=== PATIENT | male | born 1980 | race African-American/Black ===

== ENCOUNTER 2017-07-05 04:46 | Observation (INO) ==
[2017-07-05] MEDS: D5% in 0.9% NACL 1,000 ML IVC SCH ×2 (08:59→16:57)
[2017-07-05] MEDS: *HR* Morphine 2 MG/ML SYRINGE IVP PRN ×4 (08:59→20:13)
[2017-07-05] MEDS: Piperacillin/Tazobactam 3.375 GM/200 ML BAG IVPB SCH ×2 (11:31→17:18)
--- NOTE | 2017-07-05 11:42 | General Surg History&Physical ---
Addendum entered and electronically signed by Falguni Fontana CNP 07/05/17 12:33: Endoscopy report reviewed from [facility]- findings are consistent with gastritis and duodenitis, no esophageal abnormality noted. Black tarry stools were felt to be a results of the patient taking Kaopectate that he had been taking on a regular basis. Will continue with PPI therapy BID and will add carafate QID. Original Note: <Falguni Fontana - Last Filed: 07/05/17 11:59> Date of Encounter: 07/05/17 Time of Encounter: 09:30 Assessment and Plan (1) Cholecystitis, acute with cholelithiasis Current Visit: No Status: Acute The assessment and plan as outlined above was discussed with the patient and/or family members who expressed understanding and agreement. All questions were answered. NPO IV antibiotics- Zosyn IV fluids Supportive care and pain control Discussed the risks, benefits, alternatives, expected outcomes with the patient needs to go to proceed with a laparoscopic cholecystectomy, possible open with Dr. Kohli in the next 24-48 hours. PPI BID IS every 1 hour while awake AM labs Qualifiers: Cholelithiasis location: gallbladder Biliary obstruction: without biliary obstruction Qualified Code(s): K80.00 - Calculus of gallbladder with acute cholecystitis without obstruction (2) Esophagitis Current Visit: Yes Status: Acute The assessment and plan as outlined above was discussed with the patient and/or family members who expressed understanding and agreement. All questions were answered. PPI therapy BID (3) Tobacco abuse Current Visit: Yes Status: Chronic The assessment and plan as outlined above was discussed with the patient and/or family members who expressed understanding and agreement. All questions were answered. Smoking cessation education Nicotine patch prn (4) DVT prophylaxis Current Visit: Yes Status: Acute The assessment and plan as outlined above was discussed with the patient and/or family members who expressed understanding and agreement. All questions were answered. Lovenox 40mg SQ daily Ambulate hallways TID with assistance History of Present Illness Chief complaint: Abdominal pain HPI: Mr. Robledo is a 37 year old male with no significant medical history. 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 He states that he did undergo an upper endoscopy and was treated for inflammation of the esophagus and stomach. He states he was discharged and instructed to follow up with a GI physician. He reports that the epigastric abdominal pain and black tarry stools continued and he therefore presented to [facility] and [place]. He states that he was admitted to this hospital for 3-4 days and was scheduled to have a cholecystectomy today. However, the patient states that he was informed yesterday that his surgery would be cancelled and he does not have a good explanation for why the surgery was cancelled. He presented to the emergency department at [facility] last evening with similar complaints. He states that his pain in the epigastric area initially started approximately one year ago. He states that the episodes were intermittent and they did resolve on their own. However , for the last 3 weeks he states that the pain has been persistent and he is unable to gain relief from the pain. He states that eating or drinking make the pain significantly worse. He has experienced nausea and vomiting. He has has no appetite. He denies any fevers or chills. He denies any shortness of breath or chest pain. He states that he continues to have black tarry stools and his last bowel movement was last evening. He states that his symptoms do not feel any better with the use of PPI therapy. He denies any heartburn symptoms. He denies any alcohol use. He denies any chronic use of nonsteroidal inflammatory medication. He does admit to having a history of drug use which includes cocaine. 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 He has had a CAT scan evaluation which shows evidence of acute cholecystitis as well as distal esophageal thickening. The patient has been admitted to the hospital for further workup and treatment. Past Med Surg Social Fam HX - Past Medical History Source: patient, old records reviewed Medical history: asthma (as a child), kidney stones, other (esophagitis/ gastritis; pneumothorax as a child) Psychiatric history: no psych history - Past Surgical History Surgical History: other (EGD complete in the past week at [facility] in [facility]) - Social History Smoking Status: Current every day smoker Smokeless Tobacco Status: No Alcohol use: none Drug use: none (currently), cocaine (patient states that he has not used in 2 months and is currently in recovery) - Family History Mother Living Status: Still Living Father Living Status: Age at : 55 Hx Family Cancer: Yes (prostate) Grandmother Living Status: Age at : 63 Hx Family Cancer: Yes (pancreatic cancer) Medications and Allergies HYDROcodone/Acet 5/325 mg [[place]ubon 5-325 mg] 1 - 2 tab PO Q8H PRN 07/05/17 [ History] Pantoprazole Sodium [Protonix] 40 mg PO QAM 07/05/17 [History] 3 Allergy/AdvReac Type Severity Reaction Status Date / Time No Known Allergies Allergy Verified 07/05/17 02:05 Review of Systems All systems PM: reviewed and no additional remarkable complaints except as stated (in the HPI) All systems PM: A 10-system review of systems was performed and is negative for pertinent findings except as documented above in the HPI. General Surgery Exam Initial Vital Signs Temp Pulse Resp BP Pulse Ox 98.0 F 52 16 123/66 98 07/05/17 06:47 07/05/17 06:47 07/05/17 06:47 07/05/17 06:47 07/05/17 06:47 - General physical appearance well developed, well nourished, no distress, moderate pain - Eyes normal ocular movement - ENT normal mucosa, atraumatic, normocephalic - Neck trachea midline - Respiratory normal respiratory effort, clear to auscultation - Cardiovascular Cardiovascular exam: Present: bradycardia - Abdomen Abdomen general surgery: Present: bowel sounds present, soft, tender Abdominal Tenderness: Present: epigastic, RUQ - Integumentary Integumentary general surgery: Present: warm and dry - Neurologic Present: CN 2-12 grossly intact - Psychiatric Psychiatric general surgery: Present: appropriate, oriented to person, oriented to place, oriented to time, speech is normal, memory intact Results - Labs All other labs normal. - Attending Attestation For this encounter, I have reviewed the BAG SORTER or PA documentation, treatment plan, and medical decision making; and I have had face to face time with this patient. <Gilmer Kohli - Last Filed: 07/05/17 13:04> Date of Encounter: 07/05/17 History of Present Illness HPI: Mr. Robledo is a 37 year old male Review of Systems All systems PM: A 10-system review of systems was performed and is negative for pertinent findings except as documented above in the HPI. General Surgery Exam Initial Vital Signs Temp Pulse Resp BP Pulse Ox 98.0 F 52 16 123/66 98 07/05/17 06:47 07/05/17 06:47 07/05/17 06:47 07/05/17 06:47 07/05/17 06:47 Results - Labs All other labs normal. - Attending Attestation I have personally seen and examined the patient. I have reviewed pertinent labs , imaging, progress notes, including this one. I agree with the above assessment and plan and wish to include the following... 37M with reported gallbladder disease for about a year, but worse over the last 3 weeks; EGD demonstrates duodenitis and gastritis; CT suggestive of cholecystitis; abdomen is soft, but TTP along epigastric and RUQ; plan for US today; will also plan for OR pending results in the next 1-2 days;
[2017-07-05] MEDS ORDERED: Ondansetron 4 MG/2 ML VIAL IVP PRN (12:20)
[2017-07-05] MEDS ORDERED: Naloxone 0.4 MG/ML INJ IVP PRN (12:20)
[2017-07-05] MEDS ORDERED: Nicotine 14 MG PATCH.TD24 TD PRN (12:24)
[2017-07-05] MEDS: Pantoprazole 40 MG VIAL IVP SCH (16:58)
--- NOTE | 2017-07-05 22:07 | Anesthesia Evaluation PreOp ---
<Keyona Fitzgerald - Last Filed: 07/05/17 22:12> Date of Encounter: 07/05/17 - Past History Planned Operation: Lap angelica (acute cholecystitis w/ cholelithiasis) Cardiac History: Denies any Significant Hx Pulmonary History: Smoker, Asthma (childhood), Other (pneumothorax as a child) SCAFFOLDER History: Denies Any Significant HX Other Medical History: GERD (esophagitis/gastritis) Anesthesia History: Past Anesthesia (EGD) Alcohol Use: none Drug use: none (currently), cocaine (patient states that he has not used in 2 months and is currently in recovery) Medications and Allergies Pantoprazole Sodium [Protonix] 40 mg PO QAM 07/05/17 [History] 3 Allergy/AdvReac Type Severity Reaction Status Date / Time No Known Allergies Allergy Verified 07/05/17 13:13 - Meds/Allergy Pre-op Review Medications Reviewed: Yes Allergies Reviewed: Yes Beta Blockers on Current Med List: No Anesthesia Results - Labs Laboratory Tests 07/05/17 07/05/17 02:30 02:30 WBC 8.3 Hgb 14.6 Hct 44.0 Plt Count 305 Sodium 141 Potassium 3.7 Chloride 106 Carbon Dioxide 27 BUN 7 L Creatinine 0.93 Est GFR ( Amer) > 60 Est GFR (Non-Af Amer) > 60 BUN/Creatinine Ratio 8 Glucose 102 H Calculated Osmolality 290 Calcium 9.4 Anesthesia Exam Weight: 92 kg Anesthesia Assess/Plan ASA Score: 2 Anesthetic Plan: General Monitoring Plan: Standard Monitors Recovery Plan: PACU <Edgar De Leon - Last Filed: 07/06/17 17:05> Date of Encounter: 07/06/17 Time of Encounter: 17:03 - Past History Drug use: cocaine Anesthesia Results - Labs 07/06/17 06:18 07/06/17 06:18 Anesthesia Exam Vital Signs/O2 Sat, Most Current Temp Pulse Resp BP Pulse Ox 97.8 F 73 16 148/80 97 07/06/17 16:47 07/06/17 16:47 07/06/17 16:47 07/06/17 16:47 07/06/17 16:47 NPO (# of Hours): > 8 hrs Pain Scale: 0 Pain Scale Used: Numeric (1 - 10) - HEENT Pupil (Motor): Pupils equal, EOMI Mallampati: II Teeth: Normal Oral Opening: Greater than 3 - SCAFFOLDER LOC: Oriented SCAFFOLDER Motor: Normal RUE, Normal LUE, Normal RLE, Normal LLE, Normal Face SCAFFOLDER Sensory: Normal: RUE, LUE, RLE, LLE, Face - Cardiac Rhythm: Regular Murmur: None JVD: No Carotid Bruit: No - Pulmonary Breath Sounds: bilateral Clear Respiratory Effort: Symmetrical Anesthesia Assess/Plan ASA Score: 2
[2017-07-06] MEDS: Piperacillin/Tazobactam 3.375 GM/200 ML BAG IVPB SCH ×4 (00:13→23:48)
[2017-07-06] MEDS: Pantoprazole 40 MG VIAL IVP SCH ×2 (00:13→12:00)
[2017-07-06] MEDS ORDERED: *HR* Enoxaparin 40 MG/0.4 ML SYRINGE SQ SCH (06:00)
[2017-07-06 07:07] LABS: Basophils % 0.7 %; Eosinophils # 0.3 K/mcL (0.0-0.6); Eosinophils % 11.2 %; Hematocrit 42.8 % (37.5-50.1); Hemoglobin 13.8 g/dL (12.9-16.9); Immature Granulocytes % 0.3 % (0-4); Lymphocytes # 1.4 K/mcL (0.6-4.6); Lymphocytes % 45.1 %; Mean Corpuscular HGB Conc 32.2 g/dL (31.6-35.5); Mean Corpuscular Hemoglobin 28.7 pg (28.0-33.3); Mean Platelet Volume 9.8 fL (9.4-12.4); Monocytes # 0.3 K/mcL (0.0-1.3); Monocytes % 10.9 %; Platelet Count 252 K/mcL (140-400); Red Blood Count 4.81 M/mcL (4.19-5.50); Red Cell Distribution Width 14.1 % (11.5-14.5); Segmented Neutrophils % 31.8 %
[2017-07-06] MEDS: Sucralfate 1 GM TABLET PO SCH ×4 (07:30→23:44)
[2017-07-06 07:34] LABS: Alanine Aminotransferase 390 Units/L (7-52); Albumin 3.4 g/dL (3.5-5.7); Albumin/Globulin Ratio 1.4 (1.1-2.2); Alkaline Phosphatase 182 Units/L (34-104); Aspartate Amino Transferase 245 Units/L (13-39); BUN/Creatinine Ratio 5 (6-26); Bilirubin,Direct 1.9 mg/dL (0.0-0.2); Bilirubin,Indirect 0.5 mg/dL (0.0-1.2); Bilirubin,Total 2.4 mg/dL (0.3-1.0); Blood Urea Nitrogen 4 mg/dL (6-20); Calcium 8.2 mg/dL (8.6-10.3); Carbon Dioxide 26 mEq/L (23-29); Chloride 112 mEq/L (98-107); Globulin 2.5 g/dL (2.4-3.5); Glucose 84 mg/dL (70-105); Osmolality,Calculated 286 (280-300); Potassium 4.1 mEq/L (3.5-5.1); Sodium 140 mEq/L (136-145); Total Protein 5.9 g/dL (6.4-8.9); eGFR For African Americans > 60 (> 60); eGFR For Non-African Americans > 60 (> 60)
[2017-07-06] MEDS: D5% in 0.9% NACL 1,000 ML IVC SCH ×2 (07:37→23:46)
[2017-07-06] MEDS: *HR* Morphine 2 MG/ML SYRINGE IVP PRN ×4 (07:38→21:40)
--- NOTE | 2017-07-06 11:34 | General Surgery Progress Note ---
Date of Encounter: 07/06/17 Time of Encounter: 10:15 - Assessment and Plan (1) Gallbladder attack Current Visit: Yes Status: Acute 37M likely with acute cholecystitis; - OR today Subjective Patient reports: no new complaints Objective Vital Signs - Last 8 Hours Temp Pulse Resp BP Pulse Ox 07/06/17 07:17 97.4 F L 56 18 130/83 99 07/06/17 03:49 97.9 F 52 18 142/89 99 Intake and Output 07/05/17 07/06/17 07/06/17 23:59 07:59 15:59 Intake Total 3240 / 3240 1200 / 1200 Output Total 300 / 300 500 / 500 Balance 2940 / 2940 700 / 700 Intake: IV Fluids 1200 / 1200 1200 / 1200 D5% And 0.9% Nacl 1000 Ml 1,000 1000 / 1000 1000 / 1000 ML @ 100 mls/hr IVC .Q10H ILDA Rx#:[id number] Zosyn Premix 3.375 GM/200 ML 3. 200 / 200 200 / 200 375 gm In 200 ml @ 50 mls/hr IVPB Q8HR ILDA Rx#:[id number] Oral 2040 / 2040 0 / 0 Output: Urine 300 / 300 500 / 500 Other: Meal NPO Percent of Meal Consumed 0% Blood Glucose* 86 - General physical appearance no distress - Eyes other (no scleral icterus) - Respiratory normal expansion, normal respiratory effort - Cardiovascular Cardiovascular exam: Present: RRR - Abdomen Abdomen: Present: soft, tender Abdominal Tenderness: epigastic, RUQ - Neurologic CN 2-12 grossly intact - Psychiatric oriented to time, oriented to person, oriented to place - Labs 07/06/17 06:18 07/06/17 06:18 Diabetes panel 07/06/17 Range/Units 06:18 Sodium 140 (136-145) mEq/L Potassium 4.1 (3.5-5.1) mEq/L Chloride 112 H (98-107) mEq/L Carbon Dioxide 26 (23-29) mEq/L BUN 4 L (6-20) mg/dL Creatinine 0.88 (0.70-1.30) mg/dL Glucose 84 (70-105) mg/dL Calcium 8.2 L (8.6-10.3) mg/dL AST 245 H (13-39) Units/L ALT 390 H (7-52) Units/L Alkaline Phosphatase 182 H (34-104) Units/L Albumin 3.4 L (3.5-5.7) g/dL Calcium panel 07/06/17 Range/Units 06:18 Calcium 8.2 L (8.6-10.3) mg/dL Albumin 3.4 L (3.5-5.7) g/dL Pituitary panel 07/06/17 Range/Units 06:18 Sodium 140 (136-145) mEq/L Potassium 4.1 (3.5-5.1) mEq/L Chloride 112 H (98-107) mEq/L Carbon Dioxide 26 (23-29) mEq/L BUN 4 L (6-20) mg/dL Creatinine 0.88 (0.70-1.30) mg/dL Glucose 84 (70-105) mg/dL Calcium 8.2 L (8.6-10.3) mg/dL Adrenal panel 07/06/17 Range/Units 06:18 Sodium 140 (136-145) mEq/L Potassium 4.1 (3.5-5.1) mEq/L Chloride 112 H (98-107) mEq/L Carbon Dioxide 26 (23-29) mEq/L BUN 4 L (6-20) mg/dL Creatinine 0.88 (0.70-1.30) mg/dL Glucose 84 (70-105) mg/dL Calcium 8.2 L (8.6-10.3) mg/dL Total Bilirubin 2.4 H (0.3-1.0) mg/dL AST 245 H (13-39) Units/L ALT 390 H (7-52) Units/L Alkaline Phosphatase 182 H (34-104) Units/L Albumin 3.4 L (3.5-5.7) g/dL Consult Discharge Plan - Plan Referrals: NONE,PCP [Primary Care Provider] -
[2017-07-06] MEDS ORDERED: Albuterol 2.5 MG/3 ML NEBULIZER ONE (16:59)
[2017-07-06] MEDS ORDERED: *HR* FentaNYL (PF) 100 MCG/2 ML VIAL ONE ×2 (17:28→17:47)
[2017-07-06] MEDS ORDERED: *HR* Midazolam HCl 2 MG/2 ML VIAL ONE (17:28)
[2017-07-06] MEDS ORDERED: *HR* Propofol 200 MG/20 ML VIAL IVP ONE (17:28)
[2017-07-06] MEDS ORDERED: Dexamethasone 4 MG/ML VIAL ONE (18:07)
[2017-07-06] MEDS ORDERED: Ondansetron 4 MG/2 ML VIAL ONE (18:07)
[2017-07-06] MEDS ORDERED: *HR* Succinylcholine 200 MG/10 ML VIAL IVP ONE (18:07)
[2017-07-06] MEDS ORDERED: Lidocaine -MPF 2% 2 ML VIAL ONE (18:07)
[2017-07-06] MEDS ORDERED: *HR* Rocuronium Bromide 50 MG/5 ML VIAL ONE (18:07)
[2017-07-06] MEDS ORDERED: Neostigmine Methylsulfate 3 MG/3 ML SYRINGE ONE (18:14)
[2017-07-06] MEDS ORDERED: *HR* Morphine 10 MG/ML VIAL ONE (18:40)
[2017-07-06] MEDS ORDERED: *HR* HYDROmorphone (PF) 1 MG/ML SYRINGE ONE ×2 (19:18→19:39)
[2017-07-06] MEDS: *HR* HYDROmorphone (PF) 1 MG/ML SYRINGE IVP PRN ×4 (19:18→19:46)
[2017-07-06] MEDS ORDERED: *HR* Promethazine 25 MG/ML VIAL ONE (19:18)
[2017-07-06] MEDS: *HR* Promethazine 25 MG/ML VIAL IVP PRN ×2 (19:20→19:30)
[2017-07-06] MEDS ORDERED: Ringers Solution, Lactated 1,000 ML ONE (19:27)
--- NOTE | 2017-07-06 19:34 | Operative Note ---
Date of procedure: 07/06/17 Pre-op diagnosis: acute cholecystitis Post-op diagnosis: same Procedure: laparoscopic cholecystectomy Complications: none Anesthesia: GETA Local Anesthetics: 0.5% Sensorcaine HCL SubQ (cc) Surgeon: Gilmer Kohli Was there an blood donor unit assistant present: Yes Vocal Music Teacher: Tenisha Garcia Estimated blood loss (cc): 10 Specimen: gallbaldder and contents Condition: stable Disposition: PACU Procedure in Detail: The patient was brought into the operating room suite and was placed in the supine position. Mechanical DVT prophylaxis was applied. A time-in was conducted. The patient underwent smooth induction of anesthesia. Preoperative antibiotics were given. The patient was prepped and draped in the usual fashion. A time-out was held identifying the correct patient, pathology, and procedure. Everyone was in agreement and we began the procedure. Incision to Dissection I started by creating a 10mm supraumbilical incision. Via open Schuyler technique I did enter into the abdomen. Using a Vicryl on a UR-6 needle, I reapproximated, but did not close the fascia in a [id number] fashion. I inserted the 10mm, 30 degree camera, ensured that I did not cause intraabdominal injury upon entry, and quickly identified the gallbladder. It does many adhesions to the omentum. I created a 5mm incision in the epigastric region followed by two more 5mm incision, one at the midclavicular line, the last at the anterior axillary line. Using laparoscopic graspers I managed to elevate the gallbladder above the liver. I grasp the edge of the gallbladder to retract laterally. Using the [place] instrument as well as the hook- electrocautery to lyse all adhesions and begin my dissection, I dissected out the cystic duct and the cystic artery. I excised the posterior tissue to visualize the liver. I was able to clearly visualize the critical view of safety. Critical view of Safety to Excison of the gallbladder I then clipped both structures using metal clips, two on the stay side, one on the specimen side. Using laparoscopic scissors, I cut between the clip on the specimen side and the first clip on the stay side. Then using tension and counter-tension, I used the electrocautery to excise the gallbladder off of the liver bed. Before complete excision, I evaluated the liver bed to ensure there 1.) there was no bleeding, 2. No excessive bile leakage, and 3.) to evaluate my clips. There was no bleeding, bile leakage, and the clips were all the way across both duct and artery. Removal of gallbladder to Closure I switched out the 10mm camera fo the 5mm camera and inserted the endocatch bag into the umbilical port. I placed the specimen into the bag and retrieved it through the umbilical port. I replaced the 5mm camera with the 10mm camera, irrgiated the liver bed and above the liver before suctioning both irrigation fluid and air. I removed the 5mm ports, turned off the insufllation, then removed the 10mm umbilical port. I then close the umbilical fascia using the vicryl suture from the start. All incisions were closed with interrupted 4-0 monocryl and sealed with dermabond. The patient tolerated the procedure well and went back to PACU in stable condition.
--- NOTE | 2017-07-06 20:17 | Anesthesia Evaluation Post Op ---
Date of Encounter: 07/06/17 Time of Encounter: 20:17 - Vital Signs Vital Signs: Last Vital Signs Temp 97.5 F L 07/06/17 19:48 Pulse 54 07/06/17 19:58 Resp 16 07/06/17 19:58 BP 146/95 07/06/17 19:58 Pulse Ox 98 07/06/17 19:58 - Lungs Lungs: Clear Ascult./Percussion - Airway Airway: Non-obstructed - Cardiovascular Regular Rate - Mental Status Mental Status: Alert & Oriented, Answers Appropriately - Pain Pain Scale: 4 - Nausea Vomiting Nausea Vomiting: Not Present - Hydration Hydration: NPO - Discharge PostOp Status: Transfer Patient to floor
[2017-07-06] MEDS ORDERED: Nicotine 14 MG PATCH.TD24 TD PRN (20:39)
[2017-07-06] MEDS ORDERED: Naloxone 0.4 MG/ML INJ IVP PRN (20:39)
[2017-07-06] MEDS ORDERED: Ondansetron 4 MG/2 ML VIAL IVP PRN (20:39)
[2017-07-06] MEDS: *HR* OxyCODONE/APAP 5/325 TABLET PO PRN (21:38)
[2017-07-07] MEDS ORDERED: Pantoprazole 40 MG VIAL IVP SCH (00:30)
[2017-07-07] MEDS: *HR* Morphine 2 MG/ML SYRINGE IVP PRN ×2 (02:24→06:44)
[2017-07-07] MEDS: *HR* OxyCODONE/APAP 5/325 TABLET PO PRN ×3 (03:17→15:14)
[2017-07-07] MEDS ORDERED: *HR* Enoxaparin 40 MG/0.4 ML SYRINGE SQ SCH (06:00)
[2017-07-07 06:13] LABS: Alanine Aminotransferase 326 Units/L (7-52); Albumin 3.5 g/dL (3.5-5.7); Albumin/Globulin Ratio 1.4 (1.1-2.2); Alkaline Phosphatase 231 Units/L (34-104); Aspartate Amino Transferase 142 Units/L (13-39); BUN/Creatinine Ratio 5 (6-26); Bilirubin,Total 0.9 mg/dL (0.3-1.0); Blood Urea Nitrogen 5 mg/dL (6-20); Calcium 8.4 mg/dL (8.6-10.3); Carbon Dioxide 27 mEq/L (23-29); Chloride 108 mEq/L (98-107); Globulin 2.5 g/dL (2.4-3.5); Glucose 96 mg/dL (70-105); Osmolality,Calculated 285 (280-300); Potassium 3.5 mEq/L (3.5-5.1); Sodium 139 mEq/L (136-145); eGFR For African Americans > 60 (> 60); eGFR For Non-African Americans > 60 (> 60)
[2017-07-07] MEDS: D5% in 0.9% NACL 1,000 ML IVC SCH (08:08)
[2017-07-07] MEDS: Sucralfate 1 GM TABLET PO SCH (08:09)
[2017-07-07] MEDS: Piperacillin/Tazobactam 3.375 GM/200 ML BAG IVPB SCH (08:12)
--- NOTE | 2017-07-07 09:05 | General Surgery Progress Note ---
Date of Encounter: 07/07/17 Time of Encounter: 09:03 - Assessment and Plan (1) Gallbladder attack Current Visit: Yes Status: Acute 37M POD#1 s/p lap angelica 2/2 acute cholecystitis; diet as tolerated; finish last dose of IV abx SLIV start flomax 2/2 urinary issues [place] arrange follow up ideally here as he has had his care here, but encouraged him to find a PCP and a surgeon to follow up with near where he lives [place] for d/c today Subjective Patient reports: no new complaints, feels better, still having pain, pain is less, tolerating liquids well, other (difficulty urinating; per patient this is a long standing problem) Objective Vital Signs - Last 8 Hours Temp Pulse Resp BP Pulse Ox 07/07/17 06:58 99.8 F H 60 14 105/61 97 Intake and Output 07/06/17 07/07/17 07/07/17 23:59 07:59 15:59 Intake Total 940 / 940 200 / 200 1100 / 1100 Output Total 3452 / 3452 825 / 825 Balance -2512 / -2512 -625 / -625 1100 / 1100 Intake: IV Fluids 700 / 700 200 / 200 1100 / 1100 D5% And 0.9% Nacl 1000 Ml 1,000 500 / 500 1100 / 1100 ML @ 100 mls/hr IVC .Q10H ILDA Rx#:[id number] Zosyn Premix 3.375 GM/200 ML 3. 200 / 200 200 / 200 375 gm In 200 ml @ 50 mls/hr IVPB Q8HR ILDA Rx#:[id number] Oral 240 / 240 0 / 0 Output: Urine 3450 / 3450 825 / 825 Estimated Blood Loss 2 / 2 Other: Blood Glucose* 79 - General physical appearance no distress - ENT normocephalic - Respiratory normal expansion, normal respiratory effort - Cardiovascular Cardiovascular exam: Present: RRR - Abdomen Abdomen: Present: soft, tender (appropriately tender along incisions) - Neurologic CN 2-12 grossly intact - Labs 07/06/17 06:18 07/07/17 05:41 Diabetes panel 07/07/17 Range/Units 05:41 Sodium 139 (136-145) mEq/L Potassium 3.5 (3.5-5.1) mEq/L Chloride 108 H (98-107) mEq/L Carbon Dioxide 27 (23-29) mEq/L BUN 5 L (6-20) mg/dL Creatinine 0.96 (0.70-1.30) mg/dL Glucose 96 (70-105) mg/dL Calcium 8.4 L (8.6-10.3) mg/dL AST 142 H (13-39) Units/L ALT 326 H (7-52) Units/L Alkaline Phosphatase 231 H (34-104) Units/L Albumin 3.5 (3.5-5.7) g/dL Calcium panel 07/07/17 Range/Units 05:41 Calcium 8.4 L (8.6-10.3) mg/dL Albumin 3.5 (3.5-5.7) g/dL Pituitary panel 07/07/17 Range/Units 05:41 Sodium 139 (136-145) mEq/L Potassium 3.5 (3.5-5.1) mEq/L Chloride 108 H (98-107) mEq/L Carbon Dioxide 27 (23-29) mEq/L BUN 5 L (6-20) mg/dL Creatinine 0.96 (0.70-1.30) mg/dL Glucose 96 (70-105) mg/dL Calcium 8.4 L (8.6-10.3) mg/dL Adrenal panel 07/07/17 Range/Units 05:41 Sodium 139 (136-145) mEq/L Potassium 3.5 (3.5-5.1) mEq/L Chloride 108 H (98-107) mEq/L Carbon Dioxide 27 (23-29) mEq/L BUN 5 L (6-20) mg/dL Creatinine 0.96 (0.70-1.30) mg/dL Glucose 96 (70-105) mg/dL Calcium 8.4 L (8.6-10.3) mg/dL Total Bilirubin 0.9 (0.3-1.0) mg/dL AST 142 H (13-39) Units/L ALT 326 H (7-52) Units/L Alkaline Phosphatase 231 H (34-104) Units/L Albumin 3.5 (3.5-5.7) g/dL - VTE Documentation of Mechanical Device: Intermittent pneumatic compression device Consult Discharge Plan - Plan Referrals: NONE,PCP [Primary Care Provider] -
[2017-07-07 11:16] VITALS: BP 119/71
--- NOTE | 2017-07-07 12:02 | Discharge Summary ---
<Justine Mello - Last Filed: 07/07/17 12:08> Date of Encounter: 07/07/17 Time of Encounter: 12:02 - Discharge Diagnosis (1) Acute cholecystitis Priority: Primary Status: Resolved (2) Urinary retention Priority: Secondary Status: Acute - Discharge Medications Prescriptions: OxyCODONE/APAP 5/325 [Percocet 5/325 MG] 1 each PO Q6HR PRN #28 tablet PRN Reason: Pain Docusate Sodium [Colace] 100 mg PO BID #30 capsule Ibuprofen 800 mg PO Q8H #42 tablet Tamsulosin [Flomax] 0.4 mg PO DAILY #30 capsule Home Medications: Pantoprazole Sodium [Protonix] 40 mg PO QAM 07/05/17 [History] Docusate Sodium [Colace] 100 mg PO BID #30 capsule 07/07/17 [Rx] Ibuprofen 800 mg PO Q8H #42 tablet 07/07/17 [Rx] OxyCODONE/APAP 5/325 [Percocet 5/325 MG] 1 each PO Q6HR PRN #28 tablet 07/07/17 [Rx] Tamsulosin [Flomax] 0.4 mg PO DAILY #30 capsule 07/07/17 [Rx] Allergies/Adverse Reactions: 3 Allergy/AdvReac Type Severity Reaction Status Date / Time No Known Allergies Allergy Verified 07/05/17 13:13 General Surgery Exam Initial Vital Signs Temp Pulse Resp BP Pulse Ox 98.0 F 52 16 123/66 98 07/05/17 06:47 07/05/17 06:47 07/05/17 06:47 07/05/17 06:47 07/05/17 06:47 - Additional Findings See general surgery progress note no changes noted. Date of admission: 07/05/17 06:33 Primary care physician: PCP NONE Consults: 07/05/17 17:29 Consult to Tangible Personal Property Appraiser [CONS] Stat Reason for SW Consult: patient from out of town. surgery Discharging clinician: Gilmer Kohli (Constantino Mello) Anticipated date of discharge: 07/07/17 - Patient Status Disposition: Home, Self-Care Condition: Good Functional capacity at discharge: independent ambulation Overall status at discharge: patient is back to baseline - Discharge Instructions Instructions: Urinary Retention in Men (GEN), Laparoscopic Cholecystectomy (DC) Follow Up With: Falguni Fontana CNP [Advanced Practice Nurse] - 07/21/17 11:00 am Additional Instructions: General Surgical Discharge Instructions 1. No pushing, pulling, or lifting greater than 15 lbs for 2-4 weeks (depending upon procedure). 2. You may shower beginning today, but no tub baths, soaking, or swimming for 2 weeks. 3. You may resume driving when you are off narcotics and are safe to react in a car. 4. Take ibuprofen every 8 hours for discomfort. If this does not relieve discomfort, you may take the as needed Percocet. Take narcotics as directed. Do not take more narcotics then directed and do not share your narcotics with any other person. Do not drink alcohol while on narcotics. 5. Take stool softeners (Colace) or a water based laxative (Miralax) while taking narcotics. You may hold for loose stools. 6. Report any fevers greater than 100.5F, increase abdominal discomfort, drainage that looks like pus, increased redness or pain at the surgical site, or any vomiting. 7. Report any pain in the calves, shortness of breath, or rapid heartbeat. 8. Follow-up in the office as directed. 9. If you were prescribed antibiotics, do not stop them without talking to your provider. As we discussed, since you live in [place] if you are not having any symptoms of fever, drainage from your sites, worsening abdominal discomfort, or intolerable diarrhea, you can call the office and cancel your appointment. At that time you can request your pathology results if you wish. - Diet and Activity Activity: increase activity as tolerated Diet: advance to your usual diet - Hospital Course Hospital course: Mr. Robledo is a 37 year old male who presented for abdominal pain. He was noted to have acute cholecystitis. He was taken to the operating room on 2017 where he underwent an uncomplicated laparoscopic cholecystectomy. He is tolerating a regular diet without nausea or vomiting, his vital signs are stable , he has afebrile, he is ambulating without difficulty. He was reporting some urinary retention for which he was started on Flomax and he states that this is been helpful. We will begin discharge planning to home with a follow-up in the office in approximately 2 weeks. - Time Spent with Patient Total time spent providing and/or coordinating discharge services: Labs on day of discharge: Labs from last 24 hours 07/07/17 07/06/17 05:41 16:41 Sodium 139 Potassium 3.5 Chloride 108 H Carbon Dioxide 27 BUN 5 L Creatinine 0.96 Est GFR ( Amer) > 60 Est GFR (Non-Af Amer) > 60 BUN/Creatinine Ratio 5 L Glucose 96 POC Glucose 79 Calculated Osmolality 285 Calcium 8.4 L Total Bilirubin 0.9 AST 142 H ALT 326 H Alkaline Phosphatase 231 H Serum Total Protein 6.0 L Albumin 3.5 Globulin 2.5 Albumin/Globulin Ratio 1.4 - Impressions ITS Impressions Abdomen Ultrasound 07/05/17 11:03 IMPRESSION: Cholelithiasis with mild gallbladder wall thickening and minimal pericholecystic fluid. However sonographic Ahn's sign is absent. Findings are equivocal for acute cholecystitis. A HIDA scan can be performed for further evaluation if desired. D/ / Paddy Ca MD / Paddy Ca MD Interpreting Provider: Paddy Ca MD <Gilmer Kohli - Last Filed: 07/07/17 18:00> Date of Encounter: 07/07/17 - Discharge Diagnosis (1) Gallbladder attack Status: Acute General Surgery Exam Initial Vital Signs Temp Pulse Resp BP Pulse Ox 98.0 F 52 16 123/66 98 07/05/17 06:47 07/05/17 06:47 07/05/17 06:47 07/05/17 06:47 07/05/17 06:47 Date of admission: 07/05/17 06:33 Primary care physician: PCP NONE Consults: 07/05/17 17:29 Consult to Tangible Personal Property Appraiser [CONS] Stat Reason for SW Consult: patient from out of town. surgery - Hospital Course Hospital course: Mr. Robledo is a 37 year old male - Time Spent with Patient Total time spent providing and/or coordinating discharge services: Labs on day of discharge: Labs from last 24 hours 07/07/17 05:41 Sodium 139 Potassium 3.5 Chloride 108 H Carbon Dioxide 27 BUN 5 L Creatinine 0.96 Est GFR ( Amer) > 60 Est GFR (Non-Af Amer) > 60 BUN/Creatinine Ratio 5 L Glucose 96 Calculated Osmolality 285 Calcium 8.4 L Total Bilirubin 0.9 AST 142 H ALT 326 H Alkaline Phosphatase 231 H Serum Total Protein 6.0 L Albumin 3.5 Globulin 2.5 Albumin/Globulin Ratio 1.4 - Impressions ITS Impressions Abdomen Ultrasound 07/05/17 11:03 IMPRESSION: Cholelithiasis with mild gallbladder wall thickening and minimal pericholecystic fluid. However sonographic Ahn's sign is absent. Findings are equivocal for acute cholecystitis. A HIDA scan can be performed for further evaluation if desired. D/ / Paddy Ca MD / Paddy Ca MD Interpreting Provider: Paddy Ca MD - Attending Attestation I have personally seen and examined the patient. I have reviewed pertinent labs , imaging, progress notes, including this one. I agree with the above assessment and plan.
== END 2017-07-07 15:40 | disposition home or self-care (01) ==
LOC: 3ANU
PROVIDERS: ADMIT Surgery; ATTEND Surgery